=== PATIENT | female | born 1955 | race Two or more races ===

== ENCOUNTER 2024-01-16 11:37 | Emergency (ER) | payer MEDICAID ==
[~2024-01-16] VITALS: Ht 157.5 cm; Wt 59.0 kg
[2024-01-16 11:43] VITALS: BP 148/94; PULSE 70; RESP 20; TEMP 97.1; O2SAT 94
[2024-01-16] MEDS: LIDOCAINE 1% HCL (LOCAL ANESTH.) INJ 20ML MDV ID ONE (12:25)
[2024-01-16] MEDS ORDERED: CEPH500C PO (13:53)
== END 2024-01-16 13:53 | disposition home or self-care (01) ==
LOC: ER 11:37
DX: S91.321A Laceration with foreign body, right foot, initial encounter (principal); W22.09XA Striking against other stationary object, initial encounter; Y93.89 Activity, other specified; Y92.89 Other specified places as the place of occurrence of the external cause; Y99.8 Other external cause status
CPT/HCPCS: 12001; 73630; 99283; J2001